=== PATIENT | male | born 1965 ===

== ENCOUNTER 2021-12-10 08:45 | Emergency (ER) | payer MEDICAID, OTHER ==
[~2021-12-10] VITALS: Ht 175.3 cm; Wt 79.4 kg
[2021-12-10 08:48] VITALS: BP 153/88
== END 2021-12-10 09:21 | disposition home or self-care (01) ==
LOC: ER 08:45
DX: F41.9 Anxiety disorder, unspecified (principal); E11.9 Type 2 diabetes mellitus without complications; F17.210 Nicotine dependence, cigarettes, uncomplicated; I10 Essential (primary) hypertension; Z76.0 Encounter for issue of repeat prescription